=== PATIENT | male | born 1945 | race Caucasian/White ===

== ENCOUNTER 2018-02-16 09:56 | Inpatient (IN) | payer MEDICARE, MEDICAID ==
[~2018-02-16] VITALS: Ht 175.3 cm; Wt 95.7 kg
--- NOTE | 2018-02-16 09:59 | NUR ---
PT TAKEN IN WHEELCHAIR TO ER BED 03
--- NOTE | 2018-02-16 10:00 | NUR ---
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 hx; htn DENIES N/V/D; SKIN IS PINK/WARM/DRY; AAOX4 WITH EVEN AND STEADY GAIT; LUNGS WHEEZING BL; HR TACHY 108/MINS AT THIS TIME. PATIENT STATES PAIN OF 0/10 AT THIS TIME; BP 150/80. PATIENT POSITIONED FOR COMFORT; HOB ELEVATED; BEDRAILS UP X2; BED DOWN. ER MD MADE AWARE OF PT STATUS.
[2018-02-16 10:04] VITALS: BP 150/80
--- NOTE | 2018-02-16 10:09 | NUR ---
Patient being evaluated by DR ROSARIO at bedside.
[2018-02-16] MEDS ORDERED: predniSONE 20 MG TAB PO ONE (10:15)
[2018-02-16] MEDS ORDERED: ALBUTEROL 0.083% 2.5 MG/3 ML NEBU INH ONE (10:15)
[2018-02-16] MEDS ORDERED: ALBUTEROL SULFATE/IPRATROPIU 3 ML SOL IH ONE (10:15)
--- NOTE | 2018-02-16 10:22 | NUR ---
RT AT BEDSIDE FOR BREATHING TREATMENT.
--- NOTE | 2018-02-16 10:33 | NUR ---
Heather celis in ED - 02/16/18 at 1035 by MED1 X RAY AT BEDSIDE
--- NOTE | 2018-02-16 10:35 | NUR ---
X RAY AT BEDSIDE
[2018-02-16] MEDS ORDERED: cefTRIAXone 1,000 MG in DEXT 5% MINI-BAG PLUS 50 ML IV ONE (11:05)
--- NOTE | 2018-02-16 11:08 | NUR ---
EKG AT BEDSIDE
[2018-02-16] MEDS ORDERED: cefTRIAXone 1,000 MG VIAL ONE (11:20)
[2018-02-16 11:26] LABS: BASOPHILS # (AUTO) 0.1 K/uL (0.00-0.22); BASOPHILS % (AUTO) 0.5 % (0.0-2.0); EOSINOPHILS % (AUTO) 0.2 % (0.0-4.0); HEMATOCRIT 35.2 % (36-52); HEMOGLOBIN 10.7 g/dL (12.0-18.0); LYMPHOCYTES # (AUTO) 1.3 K/uL (2.0-11.5); MEAN CORPUSCULAR HEMOGLOBIN 24 pg (27-31); MEAN CORPUSCULAR HGB CONC 31 g/dL (33-37); MEAN CORPUSCULAR VOLUME 77.1 fL (80-94); MONOCYTES # (AUTO) 1.3 K/uL (0.8-1.0); NEUTROPHILS # (AUTO) 16.3 K/uL (1.8-7.7); NEUTROPHILS % (AUTO) 85.3 % (42.2-75.2); PLATELET COUNT (AUTO) 336 K/uL (140-450); RED BLOOD CELL COUNT(AUTO) 4.56 MIL/uL (4.20-6.10); RED CELL DISTRIBUTION WIDTH 16.7 % (11.6-13.7); WHITE BLOOD COUNT (AUTO) 19.1 K/uL (4.8-10.8)
[2018-02-16 11:33] LABS: CARBON DIOXIDE 25.1 mmol/L (21-32); CHLORIDE 104 mmol/L (98-107); CREATININE 1.2 mg/dL (0.7-1.3); GLUCOSE 136 mg/dL (74-106); POTASSIUM 3.1 mmol/L (3.5-5.1); SODIUM SERUM 142 mmol/L (136-145); UREA NITROGEN, BLOOD 15 mg/dL (7-18)
[2018-02-16 11:33] LABS: APPEARANCE,URINE SLIGHTLY HAZY (CLEAR); BILIRUBIN,URINE NEGATIVE (NEGATIVE); BLOOD, URINE 1+ (NEGATIVE); COLOR,URINE YELLOW (YELLOW); LEUKOCYTE ESTERASE ,URINE NEGATIVE (NEGATIVE); NITRITE, URINE NEGATIVE (NEGATIVE); UGLUCOSE NEGATIVE (NEGATIVE)
[2018-02-16] MEDS ORDERED: NACL 0.9% 1,000 ML IV ONE (11:35)
[2018-02-16 11:36] LABS: PROTHROMBIN TIME 11.9 secs (10.8-13.4)
[2018-02-16 11:40] LABS: ALBUMIN 2.6 g/dL (3.4-5.0); ASPARTATE AMINOTRANSFERASE 71 U/L (15-37); TOTAL BILIRUBIN 1.1 mg/dL (0.0-1.0)
[2018-02-16 11:46] LABS: RBC,URINE 0-5 (RARE) /HPF (0-5); WBC,URINE 0-5 (RARE) /HPF (0-5)
[2018-02-16] MEDS ORDERED: ACETAMINOPHEN 325 MG TAB PO PRN (12:25)
[2018-02-16] MEDS ORDERED: HYDROmorphone 1 MG/ML AMP IVP PRN ×2 (12:25)
[2018-02-16] MEDS ORDERED: ONDANSETRON 4 MG/2 ML VIAL IM/IVP PRN (12:25)
[2018-02-16] MEDS ORDERED: KETOROLAC 30 MG/ML VIAL IVP PRN (12:25)
[2018-02-16] MEDS ORDERED: DOCUSATE SODIUM 100 MG GELCAP PO PRN (12:25)
[2018-02-16] MEDS ORDERED: oxyCODONE/APAP 5/325 MG 1 TAB TAB PO PRN ×2 (12:25)
[2018-02-16] MEDS ORDERED: HYDROcodone/APAP 7.5/325 MG 1 TAB PO PRN (12:25)
[2018-02-16] MEDS ORDERED: ALBUTEROL SULFATE/IPRATROPIU 3 ML SOL IH PRN (12:50)
[2018-02-16 12:52] LABS: CHOL/HDL RATIO 2.6 (1-4.5); PHOSPHORUS 2.6 mg/dL (2.5-4.9); THYROID STIMULATING HORMONE 2.01 uIU/mL (0.34-3.74)
[2018-02-16 13:00] VITALS: BP 160/89
[2018-02-16] MEDS ORDERED: POTASSIUM CHLORIDE 10 MEQ TABER PO SCH (13:00)
--- NOTE | 2018-02-16 13:00 | NUR ---
PLACED PT ON 50% VENTURI PT DESATS BIPAP BEING ORDERED
--- NOTE | 2018-02-16 13:00 | NUR ---
PT ADMITTED FROM ER AT THIS TIME. BEDSIDE REPORT RECEIVED FROM [facility] ER NURSE. PT ASKED TO USE RESTROOM UPON ARRIVAL. ABLE TO AMB FROM [facility] WITH STEADY GAIT. PT VOIDED & AMB TO BED WITH LABORED BREATHING. OBTAINED SA02 85% IN ROOM AIR. APPLIED O2 @ 3LPM VIA NC WITH SAO2 @ 86%. DR RUIZ CAME IN TO SEE PT, NOTIFIED OF RESP DISTRESS WITH ORDER FOR BIPAP. RT ARRIVED AT BEDSIDE. PT IN HIGH FOWLERS IN BED, ALERT, VERBALLY RESPONSIVE IN [place], NO C/O PAIN. PT ORIENTED TO ROOM & UNIT, VERBALIZED UNDERSTANDING. CALL LIGHT WITHIN REACH.
--- NOTE | 2018-02-16 13:02 | NUR ---
Pt transferred to Tele via [facility] room 124-B, report given to Dejan MERCEDES
--- NOTE | 2018-02-16 13:05 | NUR ---
PLACED PT ON MCCORD V60 ON DOCUMENTED SETTINGS ALARMS ARE AND FUNCTIONAL PT IN HF ALERT WEARING F\F MASK SIZE LARGE GEL PLACED UNDER MASK BS WHEEZING CONT. POX IN PLACE HHN GIVEN I\L BIPAP PLUGGED INTO RED OUTLET
--- NOTE | 2018-02-16 13:10 | NUR ---
PT IN HIGH FOWLERS WITH BIPAP MASK. SAO2 @ 96%, RESPIRATIONS EVEN & UNLABORED. PT VERBALIZED HE FEELS BETTER. CALL LIGHT WITHIN REACH.
[2018-02-16] MEDS: ALBUTEROL SULFATE/IPRATROPIU 3 ML SOL IH SCH ×2 (13:16→18:48)
[2018-02-16] MEDS ORDERED: APIX5TAB4 PO (14:09)
[2018-02-16] MEDS ORDERED: [UNRECOGNIZED DRUG - CODE] PO (14:09)
[2018-02-16] MEDS ORDERED: ALLO100T21 PO (14:09)
[2018-02-16] MEDS ORDERED: AMLO10TA4 PO (14:09)
[2018-02-16] MEDS ORDERED: LISI-420 PO (14:09)
[2018-02-16] MEDS ORDERED: SIMV40TA1 PO (14:09)
[2018-02-16] MEDS: NACL 0.9% 1,000 ML IV SCH (14:28)
[2018-02-16 14:56] LABS: BARBITURATE, URINE NEG. ng/ml (NEG <=200); BENZODIAZEPINE, URINE NEG. ng/mL (NEG <=200); CANNABINOID, URINE NEG. ng/mL (NEG <=50); COCAINE, URINE NEG. ng/mL (NEG <=300); OPIATE, URINE NEG. ng/mL (NEG <=2000); PHENCYCLIDINE SCREEN,URINE NEG. ng/mL (NEG <=25)
[2018-02-16 16:00] VITALS: BP 158/86
--- NOTE | 2018-02-16 16:21 | NUR ---
REPORTED ABG TO DR RUIZ LEAVE PT ON BIPAP WITH CURRENT SETTINGS
--- NOTE | 2018-02-16 17:50 | NUR ---
DR POPE AT BEDSIDE ASSESSING PT. PER PHYSICIAN, PT TO REMAIN NPO EXCEPT MEDS WHILE ON BIPAP. PT VERBALIZED UNDERSTANDING.
[2018-02-16] MEDS ORDERED: VANCOMYCIN PER PHARMACY MC PRN (18:00)
[2018-02-16] MEDS: PIPER/TAZO 3.375GM/D5W PREMIX 50 ML IV SCH (18:08)
[2018-02-16] MEDS: VANCOMYCIN 1GM/DEXT 5% PREMIX 200 ML IV SCH (18:50)
--- NOTE | 2018-02-16 19:01 | NUR ---
PT IN BED WITH HOB >45DEG, AWAKE, VERBALLY RESPONSIVE, NO C/O PAIN, RESPIRATIONS EVEN & UNLABORED ON BIPAP. CALL LIGHT WITHIN REACH.
--- NOTE | 2018-02-16 19:09 | NUR ---
BEDSIDE REPORT GIVEN TO BUS AND RAIL OPERATOR NURSE MIREILLE. PT IN BED, AWAKE, BIPAP IN PLACE, CALL LIGHT WITHIN REACH.
--- NOTE | 2018-02-16 19:10 | NUR ---
RECEIVED REPORT FROM DAY SHIFT NURSE. PT RESTING IN BED, IN HIGH FOWLERS POSITION. ON BIPAP. RT IN THE ROOM TO CHECK THE PT. NO C/O PAIN OR SOB. IV TO RIGHT AC #20G, PATENT AND INTACT. SKIN INTACT. SAFETY PRECAUTION IN PLACE. CALL LIGHT WITHIN REACH.
[2018-02-16 20:00] VITALS: BP 119/64
[2018-02-16] MEDS ORDERED: PANTOPRAZOLE 40 MG TABEC PO SCH (21:00)
[2018-02-16] MEDS ORDERED: SIMVASTATIN 20 MG TAB PO SCH (21:00)
[2018-02-16] MEDS: APIXABAN 2.5 MG TAB PO SCH (21:04)
[2018-02-16] MEDS: amLODIPine 5 MG TAB PO SCH (21:05)
[2018-02-16] MEDS: LISINOPRIL 20 MG TAB PO SCH (21:05)
--- NOTE | 2018-02-16 21:05 | NUR ---
DUE MEDS GIVEN. PT TOLERATED WELL. NO C/O PAIN OR SOB. ALL NEEDS MET AT THIS TIME.
--- NOTE | 2018-02-16 23:45 | NUR ---
PT SLEEPING BUT EASILY AROUSABLE. NO S/S OF ACUTE DISTRESS NOTED.
[2018-02-17] VITALS: BP 128/60
[2018-02-17] MEDS: PIPER/TAZO 3.375GM/D5W PREMIX 50 ML IV SCH ×5 (00:22→23:09)
--- NOTE | 2018-02-17 02:15 | NUR ---
PT RESTING IN BED WITH EYES CLOSED. NO S/S OF PAIN OR RESP DISTRESS. PT ON BIPAP.
[2018-02-17 04:00] VITALS: BP 148/65
--- NOTE | 2018-02-17 04:30 | NUR ---
PT SLEEPING BUT WAKES EASILY. NO S/S OF RESP DISTRESS. CALL LIGHT WITHIN REACH.
--- NOTE | 2018-02-17 06:00 | NUR ---
PT IN BED, AWAKE. HOB ELEVATED. ON BIPAP. NO C/O PAIN OR SOB. CALL LIGHT WITHIN REACH.
[2018-02-17] MEDS: VANCOMYCIN 1GM/DEXT 5% PREMIX 200 ML IV SCH ×2 (06:08→18:24)
[2018-02-17] MEDS: ALBUTEROL SULFATE/IPRATROPIU 3 ML SOL IH SCH ×3 (06:36→18:49)
--- NOTE | 2018-02-17 06:36 | NUR ---
RECEIVED PT ON DOCUMENTED SETTINGS ALARMS ARE ON AND FUNCTIONAL PT IN HF , ALERT, WEARING F\F MASK SIZE LARGE GEL UNDER MASK, HHN GIVEN I\L WITH 3 MG DUONEB BIPAP PLUGGED INTO RED OUTLET CONT. POX IN PLACE
[2018-02-17 07:06] LABS: BASOPHILS % (AUTO) 0.1 % (0.0-2.0); HEMOGLOBIN 9.7 g/dL (12.0-18.0); LYMPHOCYTES # (AUTO) 0.9 K/uL (2.0-11.5); LYMPHOCYTES % (AUTO) 5.2 % (20.5-51.1); MEAN CORPUSCULAR HEMOGLOBIN 24 pg (27-31); MEAN CORPUSCULAR HGB CONC 31 g/dL (33-37); MEAN CORPUSCULAR VOLUME 76.7 fL (80-94); MONOCYTES % (AUTO) 5.7 % (1.7-9.3); NEUTROPHILS # (AUTO) 15.6 K/uL (1.8-7.7); PLATELET COUNT (AUTO) 297 K/uL (140-450); RED BLOOD CELL COUNT(AUTO) 4.04 MIL/uL (4.20-6.10); RED CELL DISTRIBUTION WIDTH 16.7 % (11.6-13.7); WHITE BLOOD COUNT (AUTO) 17.5 K/uL (4.8-10.8)
--- NOTE | 2018-02-17 07:10 | NUR ---
ENDORSED PT TO DAY SHIFT NURSE. PT IN STABLE CONDITION.
--- NOTE | 2018-02-17 07:30 | NUR ---
PATIENT AWAKE, ALERT. RESPIRATION EVEN, UNLABOR ON BIPAP. SKIN DRY AND WARM. IV PATENT AND INTACT. DENIED PAIN AT THIS TIME. PLAN OF CARE WAS DISCUSSED WITH PATIENT. BED AT LOW POSITION, SIDE RAILS UP. CALL LIGHT WITHIN REACH
[2018-02-17 07:50] LABS: CARBON DIOXIDE 23.7 mmol/L (21-32); CHLORIDE 109 mmol/L (98-107); GLUCOSE 111 mg/dL (74-106); POTASSIUM 3.7 mmol/L (3.5-5.1); SODIUM SERUM 144 mmol/L (136-145); UREA NITROGEN, BLOOD 17 mg/dL (7-18)
[2018-02-17 08:00] VITALS: BP 153/98
[2018-02-17 08:01] LABS: MAGNESIUM 2.2 mg/dL (1.8-2.4); PHOSPHORUS 3.2 mg/dL (2.5-4.9)
[2018-02-17 08:04] LABS: CHOL/HDL RATIO 2.6 (1-4.5)
[2018-02-17] MEDS: ALLOPURINOL 100 MG TAB PO SCH (08:40)
[2018-02-17] MEDS: PANTOPRAZOLE 40 MG INJ VIAL IVP SCH (08:40)
[2018-02-17] MEDS: LISINOPRIL 20 MG TAB PO SCH ×2 (08:40→20:17)
--- NOTE | 2018-02-17 08:40 | NUR ---
PATIENT HAS BEEN SCREENED AND CATEGORIZED HIGH NUTRITION RISK. PATIENT WILL BE SEEN WITHIN 1-2 DAYS OF ADMISSION. 02/17/18-02/18/[address]
[2018-02-17] MEDS: DIGOXIN 0.25 MG TAB PO SCH (08:41)
[2018-02-17] MEDS: amLODIPine 5 MG TAB PO SCH ×2 (08:42→20:17)
[2018-02-17] MEDS: FUROSEMIDE 40 MG TAB PO SCH (08:42)
[2018-02-17] MEDS: LACTOBACILLUS RHAMNOSUS GG 1 EACH CAP PO SCH (08:42)
[2018-02-17] MEDS: APIXABAN 2.5 MG TAB PO SCH ×2 (08:49→20:20)
[2018-02-17] MEDS ORDERED: PANTOPRAZOLE 40 MG TABEC PO SCH (09:00)
[2018-02-17] MEDS ORDERED: LACTOBACILLUS RHAMNOSUS GG 1 EACH CAP PO SCH (09:00)
--- NOTE | 2018-02-17 09:50 | NUR ---
ABG REPORTED TO DR RUIZ INCREASE FIO2 TO 40
--- NOTE | 2018-02-17 10:07 | NUR ---
PATIENT WAS SLEEPING COMFORTABLY. RESPIRATION EVEN, UNLABOR ON BIPAP. NO DISTRESS NOTED AT THIS TIME
[2018-02-17] MEDS: NACL 0.9% 1,000 ML IV SCH (11:26)
--- NOTE | 2018-02-17 11:32 | NUR ---
REMOVED BIPAP PER DR POPE PLACED 4L OXYMIZER SPO2 95 LEFT SPUTUM CUP INSTRUCTED AT BEDSIDE
[2018-02-17 12:00] VITALS: BP 142/82
--- NOTE | 2018-02-17 12:10 | NUR ---
PATIENT WAS AWAKE, ALERT. RESPIRATION EVEN, UNLABOR ON 4L OXIMIZER. DENIED PAIN, SOB. NO DISTRESS NOTED AT THIS TIME. CALL LIGHT WITHIN REACH
--- NOTE | 2018-02-17 14:02 | NUR ---
CALLED [facility] AND SPOKE WITH CAROLYNN RAMIREZ PHONE [phone] X [phone]. FAX [phone]. ASHLEY SAID FOR SNF, JUST SEND THE ORDER TO HER AND SHE WILL LOOK FOR SNF.
--- NOTE | 2018-02-17 14:05 | NUR ---
PATIENT WAS AWAKE, ALERT. RESPIRATION EVEN, UNLABOR ON 4L OXIMIZER. NO DISTRESS NOTED AT THIS TIME
--- NOTE | 2018-02-17 14:56 | NUR ---
02/17/18 RD INITIAL ASSESSMENT COMPLETED PLEASE REFER TO NUTRITION ASSESSMENT UNDER CARE ACTIVITY FOR ESTIMATED NUTRITIONAL NEEDS. 1. CONTINUE 2 GM NA DIET TOLERATED 2. DIETITIAN PROVIDED NUTRITIONAL EDUCATION IN REGARDS TO PT BMI (BMI=31.2) 3. RD TO FOLLOW-UP 3-5 DAYS, MODERATE RISK SEBASTIAN MILLER RD
[2018-02-17 16:00] VITALS: BP 134/76
--- NOTE | 2018-02-17 16:01 | NUR ---
PATIENT WAS AWAKE, ALERT. RESPIRATION EVEN, UNLABOR ON 4L OXIMIZER. DENIED PAIN, SOB. NO DISTRESS NOTED AT THIS TIME. CALL LIGHT WITHIN REACH
--- NOTE | 2018-02-17 18:20 | NUR ---
PATIENT WAS AWAKE, ALERT. RESPIRATION EVEN, UNLABOR ON 4L OXIMIZER. IV PATENT AND INTACT. NO DISTRESS NOTED AT THIS TIME
--- NOTE | 2018-02-17 19:09 | NUR ---
ENDORSEMENT GIVEN TO MOTHER SUPERIOR NURSE. PATIENT IS STABLE AT THIS TIME
--- NOTE | 2018-02-17 19:10 | NUR ---
REPORT RECEIVED FROM AM NURSE AT BEDSIDE. PT IN STABLE CONDITION. AAOX4. INTRODUCED SELF TO PT. BOARD UPDATED. IV SITE R AC 20G RUNNING NS TKO@10ML/HR PATENT AND INTACT. SKIN WARM, DRY, AND INTACT WITH NO OPEN WOUNDS. NO PT ON 6L O2 VIA OXIMIZER. BED LOCKED IN LOW POSITION. CALL KWAN WITHIN REACH. SAFETY PRECAUTIONS IN PLACE. NO COMPLAINTS OF PAIN. NO SOB.
[2018-02-17 20:00] VITALS: BP 125/68
--- NOTE | 2018-02-17 20:20 | NUR ---
ELIQUIS, NORVASC, AND ZESTRIL GIVEN PO. PT TOLERATED WELL.
--- NOTE | 2018-02-17 23:09 | NUR ---
SHABNAM HUNG AND RUNNING. PT TOLERATING WELL.
[2018-02-18] VITALS (7 sets, daily range): BP systolic 125–145; BP diastolic 66–91
--- NOTE | 2018-02-18 01:45 | NUR ---
PT SLEEPING COMFORTABLY IN BED. NO S/S OF DISTRESS NOTED. NO COMPLAINTS OF PAIN. NO SOB. WILL CONTINUE TO MONITOR.
--- NOTE | 2018-02-18 03:25 | NUR ---
PT SLEEPING COMFORTABLY IN BED. NO S/S OF DISTRESS NOTED. RESPIRATIONS EVEN, UNLABORED, AND WNL. WILL CONTINUE TO MONITOR.
[2018-02-18] MEDS: PIPER/TAZO 3.375GM/D5W PREMIX 50 ML IV SCH ×4 (05:02→23:07)
--- NOTE | 2018-02-18 05:02 | NUR ---
SHABNAM HUNG AND RUNNING. PT TOLERATED WELL.
[2018-02-18] MEDS: VANCOMYCIN 1GM/DEXT 5% PREMIX 200 ML IV SCH ×2 (06:02→20:02)
--- NOTE | 2018-02-18 06:02 | NUR ---
REID COTTRELL AND RUNNING. PT TOLERATING WELL.
--- NOTE | 2018-02-18 07:10 | NUR ---
REPORT GIVEN TO AM NURSE AT BEDSIDE. PT IN STABLE CONDITION.
[2018-02-18 07:11] LABS: BASOPHILS # (AUTO) 0.1 K/uL (0.00-0.22); BASOPHILS % (AUTO) 0.5 % (0.0-2.0); EOSINOPHILS # (AUTO) 0.6 K/uL (0-0.4); EOSINOPHILS % (AUTO) 4.2 % (0.0-4.0); HEMATOCRIT 35.5 % (36-52); HEMOGLOBIN 11.2 g/dL (12.0-18.0); LYMPHOCYTES # (AUTO) 1.5 K/uL (2.0-11.5); LYMPHOCYTES % (AUTO) 10.3 % (20.5-51.1); MEAN CORPUSCULAR HEMOGLOBIN 24 pg (27-31); MEAN CORPUSCULAR HGB CONC 32 g/dL (33-37); MEAN CORPUSCULAR VOLUME 76.3 fL (80-94); MONOCYTES # (AUTO) 0.9 K/uL (0.8-1.0); MONOCYTES % (AUTO) 6.4 % (1.7-9.3); NEUTROPHILS # (AUTO) 11.5 K/uL (1.8-7.7); NEUTROPHILS % (AUTO) 78.6 % (42.2-75.2); PLATELET COUNT (AUTO) 358 K/uL (140-450); RED BLOOD CELL COUNT(AUTO) 4.65 MIL/uL (4.20-6.10); RED CELL DISTRIBUTION WIDTH 16.6 % (11.6-13.7); WHITE BLOOD COUNT (AUTO) 14.6 K/uL (4.8-10.8)
[2018-02-18 07:21] LABS: ALBUMIN 2.3 g/dL (3.4-5.0); ANION GAP 11.3 (8-16); ASPARTATE AMINOTRANSFERASE 249 U/L (15-37); CARBON DIOXIDE 29.4 mmol/L (21-32); CHLORIDE 105 mmol/L (98-107); CREATININE 1.1 mg/dL (0.7-1.3); GLUCOSE 97 mg/dL (74-106); POTASSIUM 3.7 mmol/L (3.5-5.1); SODIUM SERUM 142 mmol/L (136-145); TOTAL BILIRUBIN 0.9 mg/dL (0.0-1.0); UREA NITROGEN, BLOOD 19 mg/dL (7-18)
[2018-02-18 07:23] LABS: MAGNESIUM 2.1 mg/dL (1.8-2.4); PHOSPHORUS 3.8 mg/dL (2.5-4.9)
[2018-02-18] MEDS: ALBUTEROL SULFATE/IPRATROPIU 3 ML SOL IH SCH ×3 (07:33→18:57)
--- NOTE | 2018-02-18 07:33 | NUR ---
AWAKE AND ALERT ENCOURAGED PATIENT FOR INTERMITTENT DEEP BREATHING AND COUGH DURING THERAPY SATURATION 97% ON SUPPLEMENTAL OXYGEN AT 6 LPM VIA OXYMIZER POST HHN THERAPY TITRATED FIO2 TO 5 LPM JANE/RN NOTIFIED RESPIRONICS V60 BIPAP #2403 AT BEDSIDE
--- NOTE | 2018-02-18 07:55 | NUR ---
PATIENT AWAKE, ALERT. RESPIRATION EVEN, UNLABOR ON 5L OXIMIZER. SKIN DRY AND WARM. IV PATENT AND INTACT. DENIED PAIN AT THIS TIME. RT WAS AT BEDSIDE. PLAN OF CARE WAS DISCUSSED WITH PATIENT. BED AT LOW POSITION, SIDE RAILS UP. CALL LIGHT WITHIN REACH.
[2018-02-18] MEDS: LACTOBACILLUS RHAMNOSUS GG 1 EACH CAP PO SCH (08:55)
[2018-02-18] MEDS: LISINOPRIL 20 MG TAB PO SCH ×2 (08:55→20:01)
[2018-02-18] MEDS: PANTOPRAZOLE 40 MG INJ VIAL IVP SCH (08:55)
[2018-02-18] MEDS: FUROSEMIDE 40 MG TAB PO SCH (08:56)
[2018-02-18] MEDS: ALLOPURINOL 100 MG TAB PO SCH (08:56)
[2018-02-18] MEDS: DIGOXIN 0.25 MG TAB PO SCH (08:56)
[2018-02-18] MEDS: amLODIPine 5 MG TAB PO SCH ×2 (08:57→20:01)
[2018-02-18] MEDS: APIXABAN 2.5 MG TAB PO SCH ×2 (09:00→20:07)
--- NOTE | 2018-02-18 10:15 | NUR ---
PATIENT WAS AWAKE, ALERT. RESPIRATION EVEN, UNLABOR ON 5L OXIMIZER. NO DISTRESS NOTED AT THIS TIME
--- NOTE | 2018-02-18 12:00 | NUR ---
PATIENT WAS AWAKE, ALERT. RESPIRATION EVEN, UNLABOR ON 5L OXIMIZER. DENIED PAIN, SOB AT THIS TIME. NO DISTRESS NOTED. CALL LIGHT WITHIN REACH
[2018-02-18] MEDS: NACL 0.9% 1,000 ML IV SCH (12:22)
--- NOTE | 2018-02-18 14:12 | NUR ---
CAROLYNN HURST RECEIVED ORDER FOR DC PLANNING FOR SNF EVAL. PER DR. RUIZ, NO DISCHARGE YET. I INFORMED CAROLYNN RAMIREZ PH# [phone] [place] [address], [address]'S ORDER FOR DC PLANNING TO SNF, NO DISCHARGE YET. CAROLYNN RAMIREZ REQUESTED FOR THE ORDER AND CLINICAL PACKET TO BE FAXED TO HER DC BR[facility] STIFFENER [phone]. ORDER AND CLINICAL PACKET FAXED TO [facility] DC BR[facility] STIFFENER ATTN: CAROLYNN RAMIREZ [phone]. Addendum: 02/18/18 at 1419 by Wendy Villagomez CM CAROLYNN RAMIREZ REQUESTED TO LET HER KNOW WHEN THERE IS A DC ORDER.
--- NOTE | 2018-02-18 14:15 | NUR ---
PATIENT WAS AWAKE, ALERT. RESPIRATION EVEN, UNLABOR ON 5L OXIMIZER. NO DISTRESS NOTED AT THIS TIME
--- NOTE | 2018-02-18 14:20 | NUR ---
AWAKE AND ALERT NO PULMONARY DISTRESS NOTED AT THIS TIME SATURATION 99% ON SUPPLEMENTAL OXYGEN AT 5 LPM VIA OXYMIZER ENCOURAGED PATIENT FOR DEEP BREATHING AND COUGH DURING THERAPY POST HHN THERAPY TITRATED FIO2 TO 4 LPM DULCE NOTIFIED Addendum: 02/18/18 at 1433 by Dajuan Venegas RT OXYGEN TITRATION CONVEYED TO RICKEY COVERING FOR DULCE
--- NOTE | 2018-02-18 16:00 | NUR ---
PATIENT WAS AWAKE, ALERT. RESPIRATION EVEN, UNLABOR ON 4L OXIMIZER. DENIED PAIN, SOB AT THIS TIME. NO DISTRESS NOTED. CALL LIGHT WITHIN REACH
--- NOTE | 2018-02-18 18:15 | NUR ---
CODE STATUS WAS OBTAINED AT BEDSIDE BY DR. MULLINS VIA BAND SAW OPERATOR CAKE CUTTING [id number].
--- NOTE | 2018-02-18 18:30 | NUR ---
PATIENT AWAKE, ALERT. RESPIRATION EVEN, UNLABOR ON 4L OXIMIZER. IV PATENT AND INTACT. PATIENT AMBULATED TO BATHROOM, STEADY GAIT. NO DISTRESS NOTED AT THIS TIME
--- NOTE | 2018-02-18 19:23 | NUR ---
ENDORSEMENT GIVEN TO CT SCAN TECHNOLOGIST NURSE. PATIENT IS STABLE AT THIS TIME
--- NOTE | 2018-02-18 19:24 | NUR ---
RECEIVED BEDSIDE REPORT FROM DAY SHIFT RN. PT A&OX4. YEMENI SPEAKING. IS ON 3L OXIMIZER. RT AT BEDSIDE. PT WITH IV ON R AC 20G INFUSING NS AT 10ML. SKIN IS INTACT. DISCUSSED PLAN OF CARE WITH PATIENT. BED ON LOWEST POSITION AND BED ALARM ON. CALL LIGHT WITHIN REACH.
--- NOTE | 2018-02-18 20:05 | NUR ---
VITAL SIGNS ARE WITHIN NORMAL LIMITS. DUE MEDICATIONS GIVEN PT TOLERATED WELL. CALL LIGHT WITHIN REACH.
--- NOTE | 2018-02-18 23:46 | NUR ---
PT RESTING COMFORTABLY IN BED. VITAL SIGNS ARE WITHIN NORMAL LIMITS. DUE MEDICATIONS GIVEN PT TOLERATED WELL. CALL LIGHT WITHIN REACH.
--- NOTE | 2018-02-19 01:53 | NUR ---
PT SLEEPING IN BED. NO DISTRESS NOTED. RESPIRATIONS ARE EQUAL AND UNLABORED. CALL LIGHT WITHIN REACH. WILL CONTINUE TO MONITOR.
[2018-02-19 04:00] VITALS: BP 149/85
--- NOTE | 2018-02-19 04:00 | NUR ---
PT SLEEPING IN BED BUT EASILY AROUSABLE. VITAL SIGNS WITHIN NORMAL LIMITS. NO DISTRESS NOTED. CALL LIGHT WITHIN REACH.
[2018-02-19] MEDS: PIPER/TAZO 3.375GM/D5W PREMIX 50 ML IV SCH ×3 (04:59→18:04)
[2018-02-19] MEDS: VANCOMYCIN 1GM/DEXT 5% PREMIX 200 ML IV SCH (06:22)
--- NOTE | 2018-02-19 06:22 | NUR ---
PT WATCHING TV. VANCOCIN NOW INFUSING. NO DISTRESS NOTED. CALL LIGHT WITHIN REACH.
[2018-02-19 06:39] LABS: BASOPHILS # (AUTO) 0.1 K/uL (0.00-0.22); BASOPHILS % (AUTO) 0.8 % (0.0-2.0); EOSINOPHILS # (AUTO) 0.9 K/uL (0-0.4); EOSINOPHILS % (AUTO) 6.3 % (0.0-4.0); HEMATOCRIT 35.6 % (36-52); HEMOGLOBIN 11.3 g/dL (12.0-18.0); LYMPHOCYTES # (AUTO) 1.6 K/uL (2.0-11.5); LYMPHOCYTES % (AUTO) 10.8 % (20.5-51.1); MEAN CORPUSCULAR HEMOGLOBIN 24 pg (27-31); MEAN CORPUSCULAR HGB CONC 32 g/dL (33-37); MEAN CORPUSCULAR VOLUME 75.9 fL (80-94); MONOCYTES # (AUTO) 1.1 K/uL (0.8-1.0); MONOCYTES % (AUTO) 7.2 % (1.7-9.3); NEUTROPHILS # (AUTO) 10.9 K/uL (1.8-7.7); NEUTROPHILS % (AUTO) 74.9 % (42.2-75.2); PLATELET COUNT (AUTO) 403 K/uL (140-450); RED BLOOD CELL COUNT(AUTO) 4.69 MIL/uL (4.20-6.10); RED CELL DISTRIBUTION WIDTH 16.7 % (11.6-13.7); WHITE BLOOD COUNT (AUTO) 14.6 K/uL (4.8-10.8)
[2018-02-19] MEDS: ALBUTEROL SULFATE/IPRATROPIU 3 ML SOL IH SCH ×3 (06:54→19:31)
--- NOTE | 2018-02-19 07:21 | NUR ---
ENDORSED PT TO DAY SHIFT RN. PT IN STABLE CONDITION.
--- NOTE | 2018-02-19 07:22 | NUR ---
RECEIVED REPORT FROM NIGHT NURSE. PT IN STABLE CONDITION. RESPIRATIONS EVEN AND UNLABORED. IV 20G RIGHT AC, INTACT, PATENT. REVIEWED CARE PLAN WITH PT, PT VERBALIZED UNDERSTANDING OF CARE PLAN . SAFETY MEASURES IN PLACE. CALL LIGHT AT BEDSIDE. WILL CONTINUE TO MONITOR.
[2018-02-19 07:33] LABS: ALBUMIN 2.4 g/dL (3.4-5.0); ANION GAP 12.7 (8-16); ASPARTATE AMINOTRANSFERASE 142 U/L (15-37); CARBON DIOXIDE 28.1 mmol/L (21-32); CHLORIDE 104 mmol/L (98-107); CREATININE 1.2 mg/dL (0.7-1.3); GLUCOSE 94 mg/dL (74-106); POTASSIUM 3.8 mmol/L (3.5-5.1); SODIUM SERUM 141 mmol/L (136-145); TOTAL BILIRUBIN 0.6 mg/dL (0.0-1.0); UREA NITROGEN, BLOOD 21 mg/dL (7-18)
[2018-02-19 07:34] LABS: PHOSPHORUS 4.2 mg/dL (2.5-4.9)
[2018-02-19 08:00] VITALS: BP 146/86
[2018-02-19] MEDS: DIGOXIN 0.25 MG TAB PO SCH (09:41)
[2018-02-19] MEDS: FUROSEMIDE 40 MG TAB PO SCH (09:41)
[2018-02-19] MEDS: PANTOPRAZOLE 40 MG INJ VIAL IVP SCH (09:41)
[2018-02-19] MEDS: ALLOPURINOL 100 MG TAB PO SCH (09:42)
[2018-02-19] MEDS: APIXABAN 2.5 MG TAB PO SCH ×2 (09:42→21:40)
[2018-02-19] MEDS: amLODIPine 5 MG TAB PO SCH (09:43)
[2018-02-19] MEDS: LISINOPRIL 20 MG TAB PO SCH ×2 (09:43→21:40)
[2018-02-19] MEDS: LACTOBACILLUS RHAMNOSUS GG 1 EACH CAP PO SCH (09:43)
--- NOTE | 2018-02-19 10:40 | NUR ---
CALLED ASHLEY AT [facility]. SHE IS AWARE THE PATIENT PLAN TO BE DISCHARGED. ASHLEY SAID SHE SPOKE WITH BLAKE MERCEDES WITH THE ROOM NUMBER FOR [facility]. I SPOKE WITH DR. RUIZ AND SHE SAID THAT THE PLAN IF FOR THE PATIENT TO BE DISCHARGED TOMORROW.
--- NOTE | 2018-02-19 11:09 | NUR ---
I INFORMED ASHLEY AT [facility] THAT THE DISCHARGE PLAN IS FOR TOMORROW. I CALLED [facility] AND SPOKE WITH PARESH AND INFORMED HIM THE PLAN FOR DISCHARGE IS FOR TOMORRO. Addendum: 02/19/18 at 1112 by Bharati Kelsey DISCHARGE IS PLANNED FOR TOMORROW.
[2018-02-19] MEDS ORDERED: NACL 0.9% 500 ML IV SCH (11:30)
[2018-02-19 12:00] VITALS: BP 120/81
[2018-02-19] MEDS: NACL 0.9% 1,000 ML IV SCH (12:22)
[2018-02-19] MEDS: VANCOMYCIN 1,250 MG in DEXTROSE 5% 250 ML IV SCH (13:50)
--- NOTE | 2018-02-19 15:53 | NUR ---
WHEN PATIENT DISCHARGED, HE CAN GO TO [facility] ROOM [address] UND[address] GHOSH. PHONE [phone] FOR TRANSPORT, CALL [facility] [phone].
[2018-02-19 16:00] VITALS: BP 128/74
--- NOTE | 2018-02-19 19:29 | NUR ---
GAVE REPORT TO NIGHT NURSE FOR CONTINUITY OF CARE. PT IN STABLE CONDITION.
--- NOTE | 2018-02-19 19:30 | NUR ---
RECEIVED REPORT FROM AM SHIFT NURSE. TELE PT. PT AMBULATORY TO THE BATHROOM.PT IN STABLE CONDITION. RESPIRATIONS EVEN AND UNLABORED. IV 20G RIGHT AC, INTACT, PATENT. REVIEWED CARE PLAN WITH PT, PT VERBALIZED UNDERSTANDING OF CARE PLAN . SAFETY MEASURES IN PLACE. CALL LIGHT AT BEDSIDE. WILL CONTINUE TO MONITOR.
[2018-02-19 20:00] VITALS: BP 133/75
--- NOTE | 2018-02-19 23:00 | NUR ---
ENCOURAGED PT TO DRINK WATER. BUN ELEVATED 21. PT VERBALIZED HE DOES NOT WANT TO DRINK WATER AT NIGHT, DUE TO FREQUENT TRIPS TO THE BATHROOM. BUT UNDERSTOOD THE BENEFITS OF HYDRATION, SAID WILL DRINK MORE IN THE AM. PT COMFORTABLE IN BED, SITTING AND WATCHING TV. WILL CONTINUE TO MONITOR.
[2018-02-20] VITALS: BP 128/74
[2018-02-20] MEDS: PIPER/TAZO 3.375GM/D5W PREMIX 50 ML IV SCH ×3 (00:19→11:37)
--- NOTE | 2018-02-20 00:26 | NUR ---
HOOKED 3.375mg ZOSYN. VANCOCIN DUE WILL BE GO AFTER ZOSYN IS FINISHED.
[2018-02-20] MEDS: VANCOMYCIN 1,250 MG in DEXTROSE 5% 250 ML IV SCH ×2 (00:58→12:37)
--- NOTE | 2018-02-20 02:30 | NUR ---
PT AMBULATORY WENT TO THE BATHROOM TO VOID. PT'S IVF CHECKED STILL PATENT, AND INFUSING WELL.WILL CONTINUE TO MONITOR
[2018-02-20 04:00] VITALS: BP 119/66
--- NOTE | 2018-02-20 04:32 | NUR ---
HR WENT UP WHEN HE AMBULATED TO THE RESTROOM. HAS FREQUENT EPISODES OF SINUS TACHYCARDIA EVERYTIME HE AMBULATES TO THE RESTROOM. WILL CONTINUE TO MONITOR
--- NOTE | 2018-02-20 06:29 | NUR ---
OCCULT BLOOD COLLECTED. SENT TO LABORATORY
[2018-02-20 06:36] LABS: BASOPHILS # (AUTO) 0.1 K/uL (0.00-0.22); BASOPHILS % (AUTO) 0.9 % (0.0-2.0); EOSINOPHILS # (AUTO) 0.7 K/uL (0-0.4); EOSINOPHILS % (AUTO) 4.8 % (0.0-4.0); HEMATOCRIT 36.4 % (36-52); HEMOGLOBIN 11.5 g/dL (12.0-18.0); LYMPHOCYTES # (AUTO) 1.2 K/uL (2.0-11.5); LYMPHOCYTES % (AUTO) 7.8 % (20.5-51.1); MEAN CORPUSCULAR HEMOGLOBIN 24 pg (27-31); MEAN CORPUSCULAR HGB CONC 32 g/dL (33-37); MEAN CORPUSCULAR VOLUME 75.9 fL (80-94); MONOCYTES # (AUTO) 1.1 K/uL (0.8-1.0); MONOCYTES % (AUTO) 7.4 % (1.7-9.3); NEUTROPHILS # (AUTO) 11.7 K/uL (1.8-7.7); NEUTROPHILS % (AUTO) 79.1 % (42.2-75.2); PLATELET COUNT (AUTO) 401 K/uL (140-450); RED CELL DISTRIBUTION WIDTH 16.5 % (11.6-13.7); WHITE BLOOD COUNT (AUTO) 14.9 K/uL (4.8-10.8)
[2018-02-20 06:53] LABS: ANION GAP 8.2 (8-16); CHLORIDE 104 mmol/L (98-107); CREATININE 1.3 mg/dL (0.7-1.3); GLUCOSE 99 mg/dL (74-106); POTASSIUM 4.2 mmol/L (3.5-5.1); SODIUM SERUM 139 mmol/L (136-145); UREA NITROGEN, BLOOD 17 mg/dL (7-18)
[2018-02-20 06:54] LABS: MAGNESIUM 2.2 mg/dL (1.8-2.4); PHOSPHORUS 3.7 mg/dL (2.5-4.9)
--- NOTE | 2018-02-20 07:25 | NUR ---
ENDORSED TO NEXT SHIFT PT IN STABLE CONDITION. PT. SAID HE DOES NOT WANT TO GO TO SNF FACILITY AND WANTS TO GO HOME. ENDORSED CONCERN TO NEXT SHIFT.
--- NOTE | 2018-02-20 07:26 | NUR ---
RECEIVED BEDSIDE REPORT FROM PM SHIFT NURSE KYLAH. PT IN BED AWAKE, VERBALLY RESPONSIVE, RESPIRATIONS EVEN & UNLABORED. PT VERBALIZED DESIRE TO GO HOME INSTEAD OF SNF. WILL NOTIFY PHYSICIAN. PT DENIES ANY PAIN/DISCOMFORT AT THIS TIME. CALL LIGHT WITHIN REACH.
[2018-02-20] MEDS: ALBUTEROL SULFATE/IPRATROPIU 3 ML SOL IH SCH (07:42)
[2018-02-20 08:00] VITALS: BP 122/63
--- NOTE | 2018-02-20 08:30 | NUR ---
NOTIFIED BY FILLER MACHINE OPERATOR THAT PT'S HR INCREASED TO 160-170BPM IN AFIB. IMMEDIATELY VISUALIZED PT, PT IN HIGH FOWLERS IN BED, CALMLY EATING BREAKFAST. PT AAOx4, VERBALLY RESPONSIVE, NO C/O PAIN OR DISCOMFORT, RESPIRATIONS EVEN & UNLABORED. PT VERBALIZED HE IS UPSET BECAUSE HE WANTS TO GO HOME, BUT OTHERWISE HE FEELS FINE. APICAL XEREN=[id number], IRREGULAR. DR CEBALLOS & DR RUIZ NOTIFIED OF ELEVATED HR. STAT EKG ORDERED.
--- NOTE | 2018-02-20 08:49 | NUR ---
CARDIZEM ADMINISTERED IV ORDERED. BEDSIDE EKG COMPLETED. PT VERBALIZING HE FEELS FINE & HE WANTS TO GO HOME DESPITE DR ADVISIshan TO STAY INPATIENT FOR MONITORING. DR RUIZ & DR MAHAN AT BEDSIDE SPEAKING WITH PT.
[2018-02-20] MEDS ORDERED: amLODIPine 5 MG TAB PO SCH (09:00)
[2018-02-20] MEDS ORDERED: LORazepam 2 MG/ML VIAL IM/IVP SCH (09:00)
[2018-02-20] MEDS ORDERED: DILTIAZEM 25 MG/5 ML VIAL IVP SCH (09:00)
[2018-02-20] MEDS ORDERED: SENNA 8.6 MG TAB PO SCH (09:00)
[2018-02-20] MEDS: PANTOPRAZOLE 40 MG INJ VIAL IVP SCH (09:31)
[2018-02-20] MEDS: DIGOXIN 0.25 MG TAB PO SCH (09:31)
[2018-02-20] MEDS: ALLOPURINOL 100 MG TAB PO SCH (09:32)
[2018-02-20] MEDS: LISINOPRIL 20 MG TAB PO SCH (09:32)
[2018-02-20] MEDS: LACTOBACILLUS RHAMNOSUS GG 1 EACH CAP PO SCH (09:32)
[2018-02-20] MEDS: APIXABAN 2.5 MG TAB PO SCH (09:43)
--- NOTE | 2018-02-20 10:15 | NUR ---
DR RUIZ AT BEDSIDE SPEAKING WITH PT VIA BLUE INTRAOPERATIVE NEURO TECH PHONE. PER DR RUIZ, PT WANTS TO GO HOME AGAINST MEDICAL ADVICE. PT SITTING UP IN BED, AAOx4, RESPIRATIONS EVEN & UNLABORED. PT STATES HIS SPOUSE WILL COME TO PICK HIM UP IN A FEW HOURS.
[2018-02-20 12:00] VITALS: BP 137/65
--- NOTE | 2018-02-20 12:10 | NUR ---
PT SITTING UP IN BED, EATING LUNCH. PT IS CALM, RESPIRATIONS EVEN & UNLABORED. NO C/O PAIN OR DISCOMFORT. PT CONT TO VERBALIZE THAT HE WANTS TO GO HOME. CALL LIGHT WITHIN REACH.
[2018-02-20] MEDS: NACL 0.9% 1,000 ML IV SCH (12:22)
--- NOTE | 2018-02-20 13:25 | NUR ---
PT LEFT UNIT AT THIS TIME WITH SPOUSE, AMB WITH STEADY GAIT. IV ACCESS DISCONTINUED, NAME BAND REMOVED. PT DENIES ANY PAIN OR DISCOMFORT, RESPIRATIONS EVEN & UNLABORED IN ROOM AIR. ALL BELONGINGS SENT WITH PT.
--- NOTE | 2018-02-20 13:36 | NUR ---
PATIENT LEFT AMA. INFORMED ASHLEY FROM [facility]. I CALLED [facility] AND SPOKE WITH PARESH AND INFORMED HIM.
--- NOTE | 2018-02-20 13:47 | NUR ---
DISCHARGED FROM FACILITY
[2018-02-23 13:28] LABS: HEPATITIS A ANTIBODY IGM NEGATIVE (NEGATIVE); HEPATITIS B CORE AB TOTAL NEGATIVE (NEGATIVE); HEPATITIS B SURFACE ANTIBODY NON REACTIVE (NONREACTIVE); HEPATITIS B SURFACE ANTIGEN NEGATIVE (NEGATIVE)
== END 2018-02-20 13:25 | disposition left against medical advice (07) | DRG 871 ==
LOC: MED 09:56 → MTU 12:22
PROVIDERS: ADMIT General Practice; ATTEND General Practice
PROC: 5A09357 Assistance with Respiratory Ventilation, Less than 24 Consecutive Hours, Continuous Positive Airway Pressure (ICD-10-PCS; principal; 2018-02-16)
DX: A41.9 Sepsis, unspecified organism (principal); J69.0 Pneumonitis due to inhalation of food and vomit; E43 Unspecified severe protein-calorie malnutrition; J96.01 Acute respiratory failure with hypoxia; J44.1 Chronic obstructive pulmonary disease with (acute) exacerbation; I48.2 Chronic atrial fibrillation; E87.8 Other disorders of electrolyte and fluid balance, not elsewhere classified; I11.9 Hypertensive heart disease without heart failure; E87.6 Hypokalemia; E66.9 Obesity, unspecified; E78.5 Hyperlipidemia, unspecified; M10.9 Gout, unspecified; Z53.21 Procedure and treatment not carried out due to patient leaving prior to being seen by health care provider; I25.10 Atherosclerotic heart disease of native coronary artery without angina pectoris; Z68.31 Body mass index [BMI] 31.0-31.9, adult; Z79.01 Long term (current) use of anticoagulants; Z79.899 Other long term (current) drug therapy
CPT/HCPCS: 36415; 36600; 71045; 76705; 80048; 80053; 80162; 80202; 80305; 81001; 82272; 82550; 82553; 82728; 82803; 83036; 83540; 83605; 83735; 83874; 83880; 84100; 84436; 84443; 84479; 84484; 85025; 85610; 85730; 86704; 86706; 86708; 86709; 86803; 87040; 87081; 87086; 87340; 87804; 93005; 94640; 94660; 96365; 97110; 97116; 97530; 99285; C9113; J0696; J2060; J2543; J3370; J3490; J7030; J7060; J7512; J7613; J7620; Q0092

== ENCOUNTER 2019-01-01 15:03 | Emergency (ER) | payer MEDICARE, MEDICAID ==
[~2019-01-01] VITALS: Ht 175.3 cm; Wt 103.1 kg
[~2019-01-01 15:03] MED LIST: ALLO100T21 PO; AMLO10TA4 PO; APIX5TAB4 PO; LISI-420 PO; SIMV40TA1 PO; [UNRECOGNIZED DRUG - CODE] PO
[2019-01-01 15:52] VITALS: BP 140/72
--- NOTE | 2019-01-01 16:03 | NUR ---
PT TAKEN TO BED 8.
--- NOTE | 2019-01-01 16:20 | NUR ---
73/M PRESENTS TO ED, C/O BL PLANTAR FOOT PAIN, X2 MONTHS, WORSENING. NO DEFORMITY/SWELLING/BRUISING NOTED. +2 PITTING FOOT/ANKLE EDEMA NOTED. PT DENIES TRAUMA/INJURY. PT AWAKE AND ALERT, SKIN NORMAL WARM AND DRY, RR EVEN AND UNLABORED. HX CAD, HTN, HLD, GOUT RX METOPROLOL, AMLODIPINE, LISINOPRIL, ALLOPURINOL, SIMVASTATIN, ELIQUIS, ATORVASTATIN
--- NOTE | 2019-01-01 16:43 | NUR ---
DR LEWIS AT BEDSIDE
[2019-01-01 17:23] VITALS: BP 138/80
--- NOTE | 2019-01-01 17:23 | NUR ---
Patient discharged with v/s stable. Written and verbal after care instructions given and explained. Patient alert, oriented and verbalized understanding of instructions. Ambulatory with steady gait. All questions addressed prior to discharge. ID band removed. Patient advised to follow up with PMD. Rx of Motrin 600mg given. Patient educated on indication of medication including possible reaction and side effects. Opportunity to ask questions provided and answered.
== END 2019-01-01 17:23 | disposition home or self-care (01) ==
LOC: MED 15:03
DX: M72.2 Plantar fascial fibromatosis (principal); I10 Essential (primary) hypertension; Z79.899 Other long term (current) drug therapy
CPT/HCPCS: 99282

== ENCOUNTER 2019-01-15 15:08 | Emergency (ER) | payer MEDICARE, MEDICAID ==
[~2019-01-15] VITALS: Ht 172.7 cm; Wt 99.8 kg
[2019-01-15 15:13] VITALS: BP 193/76
[2019-01-15] MEDS ORDERED: FUROSEMIDE 40 MG TAB PO ONE (15:45)
[2019-01-15] MEDS ORDERED: FUROSEMIDE 40 MG/4 ML VIAL IVP ONE (16:10)
[2019-01-15] MEDS ORDERED: NACL 0.9% 500 ML IV ONE (16:10)
[2019-01-15 16:23] LABS: BASOPHILS # (AUTO) 0.1 K/uL (0.00-0.22); BASOPHILS % (AUTO) 0.8 % (0.0-2.0); EOSINOPHILS # (AUTO) 0.1 K/uL (0-0.4); HEMATOCRIT 38.6 % (36-52); HEMOGLOBIN 12.1 g/dL (12.0-18.0); LYMPHOCYTES # (AUTO) 1.5 K/uL (2.0-11.5); LYMPHOCYTES % (AUTO) 10.3 % (20.5-51.1); MEAN CORPUSCULAR HEMOGLOBIN 25 pg (27-31); MEAN CORPUSCULAR HGB CONC 31 g/dL (33-37); MEAN CORPUSCULAR VOLUME 79.2 fL (80-94); MONOCYTES % (AUTO) 7.1 % (1.7-9.3); NEUTROPHILS # (AUTO) 11.6 K/uL (1.8-7.7); NEUTROPHILS % (AUTO) 80.8 % (42.2-75.2); PLATELET COUNT (AUTO) 246 K/uL (140-450); RED BLOOD CELL COUNT(AUTO) 4.87 MIL/uL (4.20-6.10); RED CELL DISTRIBUTION WIDTH 17.2 % (11.6-13.7); WHITE BLOOD COUNT (AUTO) 14.4 K/uL (4.8-10.8)
[2019-01-15 16:39] LABS: ALBUMIN 3.9 g/dL (3.4-5.0); ASPARTATE AMINOTRANSFERASE 18 U/L (15-37); CARBON DIOXIDE 27.7 mmol/L (21-32); CHLORIDE 104 mmol/L (98-107); CREATININE 1.1 mg/dL (0.7-1.3); GLUCOSE 111 mg/dL (74-106); POTASSIUM 3.7 mmol/L (3.5-5.1); SODIUM SERUM 142 mmol/L (136-145); TOTAL BILIRUBIN 0.8 mg/dL (0.0-1.0); UREA NITROGEN, BLOOD 17 mg/dL (7-18)
[2019-01-15 17:51] VITALS: BP 145/77
== END 2019-01-15 17:51 | disposition home or self-care (01) ==
LOC: MED 15:08
DX: I89.0 Lymphedema, not elsewhere classified (principal); I10 Essential (primary) hypertension; Z79.899 Other long term (current) drug therapy
CPT/HCPCS: 36415; 71045; 80053; 83880; 84484; 85025; 93005; 96374; 99284; J1940; J7030; Q0092

== ENCOUNTER 2020-03-15 10:25 | Emergency (ER) | payer MEDICARE, MEDICAID ==
[~2020-03-15] VITALS: Ht 177.8 cm; Wt 95.3 kg
[~2020-03-15 10:25] MED LIST changes: -AMLO10TA4 PO; +AMLO10TA89 PO; +DIGO-81 PO; -[UNRECOGNIZED DRUG - CODE] PO
[2020-03-15 10:40] VITALS: BP 131/67
--- NOTE | 2020-03-15 11:07 | NUR ---
Ambulated to chair A
--- NOTE | 2020-03-15 11:10 | NUR ---
74/M BIB SELF c/o rash right upper back X 6 DAYS.med hx: A FIB, HTN, HLD.
[2020-03-15 11:34] VITALS: BP 131/67
--- NOTE | 2020-03-15 11:34 | NUR ---
Patient discharged with v/s stable. Written and verbal after care instructions given and explained. Patient alert, oriented and verbalized understanding of instructions. Ambulatory with steady gait. All questions addressed prior to discharge. ID band removed. Patient advised to follow up with PMD. Rx of NAPROSYN, ACYCLOVIR & NORCO given. Patient educated on indication of medication including possible reaction and side effects. Opportunity to ask questions provided and answered.
== END 2020-03-15 11:34 | disposition home or self-care (01) ==
LOC: MED 10:25
DX: B02.9 Zoster without complications (principal); E78.5 Hyperlipidemia, unspecified; I10 Essential (primary) hypertension; I48.91 Unspecified atrial fibrillation; Z79.899 Other long term (current) drug therapy
CPT/HCPCS: 99283

== ENCOUNTER 2023-10-05 11:16 | Emergency (ER) | payer BC, MEDICAID ==
[~2023-10-05] VITALS: Ht 167.6 cm; Wt 98.0 kg
[~2023-10-05 11:16] MED LIST changes: -LISI-420 PO; +LISI-953 PO; +SIMV-373 PO; -SIMV40TA1 PO
[2023-10-05 11:29] VITALS: BP 218/114; PULSE 74; RESP 18; TEMP 98.8; O2SAT 96
[2023-10-05] MEDS: amLODIPine 5 MG TAB PO ONE (12:04)
[2023-10-05 12:33] LABS: BASOPHILS # (AUTO) 0.1 K/uL (0.00-0.22); BASOPHILS % (AUTO) 0.9 % (0.0-2.0); EOSINOPHILS # (AUTO) 0.1 K/uL (0-0.4); EOSINOPHILS % (AUTO) 0.6 % (0.0-4.0); HEMATOCRIT 37.4 % (36-52); HEMOGLOBIN 13.1 g/dL (12.0-18.0); LYMPHOCYTES # (AUTO) 1.9 K/uL (2.0-11.5); LYMPHOCYTES % (AUTO) 13.7 % (20.5-51.1); MEAN CORPUSCULAR HEMOGLOBIN 30 pg (27-31); MEAN CORPUSCULAR HGB CONC 35 g/dL (33-37); MEAN CORPUSCULAR VOLUME 85.5 fL (80-94); MONOCYTES % (AUTO) 6.9 % (1.7-9.3); NEUTROPHILS # (AUTO) 11.1 K/uL (1.8-7.7); NEUTROPHILS % (AUTO) 77.9 % (42.2-75.2); PLATELET COUNT (AUTO) 243 K/uL (140-450); RED BLOOD CELL COUNT(AUTO) 4.38 MIL/uL (4.20-6.10); RED CELL DISTRIBUTION WIDTH 13.9 % (11.6-13.7); WHITE BLOOD COUNT (AUTO) 14.2 K/uL (4.8-10.8)
[2023-10-05 12:47] LABS: INR 1.15 (0.8-1.2); PARTIAL THROMBOPLASTIN TIME 35.9 secs (22-35.6)
[2023-10-05 12:48] LABS: ANION GAP 12.5 (8-16); CALCIUM 8.6 mg/dL (8.5-10.1); CARBON DIOXIDE 27.5 mmol/L (21-32); CHLORIDE 102 mmol/L (98-107); CREATININE 1.2 mg/dL (0.6-1.3); GLUCOSE 192 mg/dL (74-106); SODIUM SERUM 139 mmol/L (136-145); UREA NITROGEN, BLOOD 15 mg/dL (7-18)
[2023-10-05] MEDS: POTASSIUM CHLORIDE 10 MEQ TABER PO ONE (13:02)
[2023-10-05] MEDS ORDERED: AMOX1TAB8 PO (13:25)
[2023-10-05] MEDS ORDERED: AZIT250T4 PO (13:25)
[2023-10-05 13:48] VITALS: BP 150/90; PULSE 67; RESP 14; TEMP 98.8; O2SAT 96
== END 2023-10-05 13:48 | disposition home or self-care (01) ==
LOC: MED 11:16
DX: J18.1 Lobar pneumonia, unspecified organism (principal); E11.9 Type 2 diabetes mellitus without complications; I48.91 Unspecified atrial fibrillation; I10 Essential (primary) hypertension; Z79.2 Long term (current) use of antibiotics; Z79.899 Other long term (current) drug therapy
CPT/HCPCS: 36415; 71045; 80048; 83880; 84484; 85025; 85610; 85730; 93005; 99285; Q0092

== ENCOUNTER 2023-10-17 09:18 | Emergency (ER) | payer BC, MEDICAID ==
[~2023-10-17] VITALS: Ht 167.6 cm; Wt 92.6 kg
[~2023-10-17 09:18] MED LIST changes: +AMOX1TAB8 PO; +AZIT250T4 PO
[2023-10-17 09:30] VITALS: BP 173/100; PULSE 90; RESP 18; TEMP 98.1; O2SAT 97
[2023-10-17 09:50] VITALS: BP 166/99; PULSE 99; RESP 14; TEMP 98.3; O2SAT 96
[2023-10-17] MEDS ORDERED: HYDR25CA1 PO (10:13)
== END 2023-10-17 10:21 | disposition home or self-care (01) ==
LOC: MED 09:18
DX: F41.9 Anxiety disorder, unspecified (principal); E11.9 Type 2 diabetes mellitus without complications; I10 Essential (primary) hypertension; Z79.899 Other long term (current) drug therapy; Z79.01 Long term (current) use of anticoagulants
CPT/HCPCS: 99283